=== PATIENT | female | born 2000 | race Caucasian/White ===

== ENCOUNTER 2022-05-04 11:39 | Emergency (ER) | payer OTHER ==
[2022-05-04] MEDS ORDERED: Morphine 4 MG/ML VIAL ONE ×2 (12:27→12:36)
[2022-05-04] MEDS ORDERED: Ondansetron PF 4 MG/2 ML Vial ONE ×2 (12:27→12:36)
[2022-05-04 12:29] LABS: BHCG - Serum Negative (NEGATIVE); Pregs Control Background? CLEAR/WHITE (CLR/WHITE); Pregs Control Bar Appear? YES (CONTROL BAR)
[2022-05-04 12:36] LABS: #Eosinphils 0.1 10x3/uL (0.0-0.5); #Monocytes 0.4 10x3/uL (0.0-1.1); #Neutrophils 7.2 10x3/uL (1.5-8.4); %Basophils 0.4 % (0.0-2.0); %Eosinophils 0.7 % (0.0-6.0); %Lymphocytes 15.2 % (18.0-47.0); %Monocytes 4.2 % (0.0-10.0); %Neutrophils 79.2 % (40.0-75.0); ALT (SGPT) 13 U/L (8-55); AST (SGOT) 17 U/L (5-34); Albumin 4.5 g/dL (3.5-5.0); Alkaline Phosphatase 76 U/L (40-100); Anion Gap 18 mmol/L (10-20); BUN (Urea Nitrogen) 16 mg/dL (7.0-18.7); Bilirubin, Total 0.3 mg/dL (0.2-1.2); Calc. Creatinine Clearance 0 mL/min (70-130); Calcium 9.9 mg/dL (7.8-10.44); Carbon Dioxide 20 mmol/L (22-29); Chloride 107 mmol/L (98-107); Estimated GFR 102; Globulin 3.5 g/dL (2.4-3.5); Glucose 143 mg/dL (70-105); Hemoglobin 12.6 g/dL (12.0-15.5); Mean Corpuscular Hemoglobin 28.6 pg (27.0-33.0); Mean Corpuscular Volume 84.3 fl (81.6-98.3); Mean Platelet Volume 11.1 fl (7.4-10.4); Platelet Count 254 10x3/uL (150-450); RBC Distribution Width 12.2 % (11.5-14.5); Sodium 141 mmol/L (136-145); White Blood Cell (WBC) Count 9.1 10x3/uL (3.5-10.5)
[2022-05-04] MEDS ORDERED: Ketorolac Tromethamine 30 MG/ML VIAL ONE (13:02)
[2022-05-04 13:16] LABS: Bilirubin Neg (Negative); Blood, Urine 250 (Negative); Glucose, Urine (Dipstick) Normal (Negative); Ketone, Urine 150 mg/dL (Negative); Leukocyte Negative (Negative); Nitrite Negative (Negative); Protein, Urine (Dipstick) 100 mg/dl (Neg-Trace); Specific Gravity, Urine 1.015 (1.002-1.036); Urobilinogen Normal mg/dL (Less than 2)
[2022-05-04 13:20] LABS: Clarity Cloudy (Clear)
[2022-05-04 13:33] LABS: RBC/HPF Greater than 50 HPF (0-3)
[2022-05-04 13:34] LABS: Bacteria/HPF None Seen HPF (None Seen); Red Blood Cell Cast 0-3 LPF (None Seen); Squamous Epithelial 0-3 HPF (0-3); WBC/HPF 0-3 HPF (0-3)
[2022-05-04] MEDS ORDERED: Iopamidol 300 61% 100 ML VIAL FS ONE (14:10)
== END 2022-05-04 14:38 | disposition home or self-care (01) ==
LOC: CSHERS 11:39
DX: N20.0 Calculus of kidney (principal); K59.00 Constipation, unspecified
CPT/HCPCS: 36415; 74177; 80053; 81015; 84703; 85025; 96361; 96374; 96375; J1885; J2270; J2405; Q9967